=== PATIENT | male | born 1980 | race Hispanic/Latino ===

== ENCOUNTER 2021-06-17 09:10 | Emergency (ER) | payer SELFPAY ==
[~2021-06-17] VITALS: Ht 160 cm; Wt 64.4 kg
[2021-06-17 09:15] VITALS: BP 131/93
[2021-06-17] MEDS ORDERED: CYCLOBENZAPRINE10 MG PO (11:01)
[2021-06-17] MEDS ORDERED: NAPROXEN500 MG PO (11:01)
== END 2021-06-17 11:11 | disposition home or self-care (01) | DRG 552 ==
LOC: ED 09:10
DX: S33.5XXA Sprain of ligaments of lumbar spine, initial encounter (principal); X58.XXXA Exposure to other specified factors, initial encounter